=== PATIENT | male | born 1980 | race Caucasian/White ===

== ENCOUNTER 2016-07-02 02:50 | Emergency (ER) | payer OTHER ==
[~2016-07-02] VITALS: Ht 175.3 cm; Wt 81.9 kg
[~2016-07-02 02:50] MED LIST: GLUCOPHAGE500 MG PO; IBUPROFEN800 MG PO; MEDROL DOSEPAK4 MG PO; METHOCARBAMOL500 MG PO; MOTRIN; OXAYDO5 MG PO; PERCOCET 5/31 TABLET PO; ZOLPIDEM TARTRA10 MG PO
[2016-07-02] MEDS ORDERED: PREDNISONE20 MG PO (03:59)
[2016-07-02] MEDS ORDERED: PERCOCET 5/31 TABLET PO (03:59)
[2016-07-02 05:44] VITALS: BP 155/99
== END 2016-07-02 05:48 | disposition home or self-care (01) ==
LOC: EME 02:50
DX: S23.3XXA Sprain of ligaments of thoracic spine, initial encounter (principal); S29.012A Strain of muscle and tendon of back wall of thorax, initial encounter; X58.XXXA Exposure to other specified factors, initial encounter; M62.838 Other muscle spasm; M54.2 Cervicalgia; G89.29 Other chronic pain; Z79.891 Long term (current) use of opiate analgesic
CPT/HCPCS: 71020; 72050; 72070; 99281; 99284; J1885; J2270; J7512